=== PATIENT | male | born 1950 | race Caucasian/White ===

== ENCOUNTER 2021-11-20 14:57 | Emergency (ER) | payer OTHER ==
[2021-11-20 17:47] LABS: HEMOGLOBIN A1C 8.3 % (<5.7)
== END 2021-11-20 17:51 | disposition home or self-care (01) ==
LOC: FB.ED 14:57
DX: R07.9 Chest pain, unspecified (principal); R10.11 Right upper quadrant pain; R06.00 Dyspnea, unspecified; R73.9 Hyperglycemia, unspecified; R94.5 Abnormal results of liver function studies; E86.0 Dehydration; R74.8 Abnormal levels of other serum enzymes; N28.9 Disorder of kidney and ureter, unspecified; Z79.899 Other long term (current) drug therapy; Z79.82 Long term (current) use of aspirin; Z79.4 Long term (current) use of insulin
CPT/HCPCS: 36415; 80053; 81001; 83036; 83615; 83690; 84484; 85025; 86140; 93005; 93010; 99284; 99285-25